=== PATIENT | female | born 1955 | race Caucasian/White ===

== ENCOUNTER 2024-01-15 22:16 | Emergency (ER) | payer MEDICARE ==
[~2024-01-15] VITALS: Ht 162.6 cm; Wt 53.1 kg
[~2024-01-15 22:16] MED LIST: ETOMIDATE 2 MG/ML 10 ML INJ IV ONE; SUCCINYLCHOLINE CHLORIDE 20 MG/ML 10ML VIAL ONE
[2024-01-15 22:49] LABS: BASOPHILS # (AUTO) 0.1 (0.0-0.1); BASOPHILS % 0.6 % (0.0-1.0); EOSINOPHILS # (AUTO) 0.3 (0.0-0.4); EOSINOPHILS % 3.4 % (0.0-6.0); HEMOGLOBIN 8.7 g/dL (12.0-16.0); LYMPHOCYTES # (AUTO) 2.4 (1.0-3.2); LYMPHOCYTES % 25.8 % (18.0-39.1); MEAN CORPUSCULAR HEMOGLOBIN 23.8 pg (28-32); MEAN CORPUSCULAR VOLUME 79.2 fL (81-99); MONOCYTES # (AUTO) 0.6 (0.2-0.8); MONOCYTES % 6.8 % (4.4-11.3); NEUTROPHILS % 63.2 % (38.7-80.0); PLATELET COUNT 469 x10e3/uL (140-360); RED BLOOD COUNT 3.66 x10e6/uL (3.6-5.1); RED CELL DISTRIBUTION WIDTH 18.6 % (11.7-14.4); WHITE BLOOD COUNT 9.45 x10e3/uL (4.8-10.8)
[2024-01-15] MEDS: FUROSEMIDE INJ 10 MG/ML 4 ML VIAL IV ONE (23:05)
[2024-01-15] MEDS: ASPIRIN 81 MG CHEW TAB PO ONE (23:05)
[2024-01-15 23:06] LABS: PROTHROMBIN TIME 13.7 seconds (11.9-14.5)
[2024-01-15 23:07] LABS: ALBUMIN 3.6 g/dL (3.5-5.0); ALBUMIN/GLOBULIN RATIO 0.8 (0.8-2.0); ANION GAP 13.7 mmol/L (8-16); BILIRUBIN,TOTAL 0.2 mg/dL (0.2-1.2); CALCIUM 8.8 mg/dL (8.4-10.2); CREATININE, SERUM 1.17 mg/dL (0.57-1.11); PARTIAL THROMBOPLASTIN TIME 31.6 seconds (23.8-35.5); POTASSIUM 3.7 mmol/L (3.5-5.1)
[2024-01-15] MEDS ORDERED: DEXMEDETOMIDINE 400MCG/NS100ML 100 ML IV ONE (23:43)
[2024-01-15 23:57] VITALS: PULSE 86; RESP 18; TEMP 98.6
[2024-01-15] MEDS: DEXMEDETOMIDINE 400MCG/NS100ML 100 ML IV PRN (23:58)
[2024-01-16] MEDS ORDERED: MIDAZOLAM HCL 2 MG/2 ML VIAL ONE (00:09)
[2024-01-16] MEDS: MIDAZOLAM HCL 2 MG/2 ML VIAL IV STA (00:12)
[2024-01-16 05:13] VITALS: BP 120/71; PULSE 86; RESP 18; TEMP 98.6; O2SAT 100
== END 2024-01-16 00:08 | disposition other institution (70) ==
LOC: ER 22:25
DX: J96.90 Respiratory failure, unspecified, unspecified whether with hypoxia or hypercapnia (principal); I21.3 ST elevation (STEMI) myocardial infarction of unspecified site; I24.9 Acute ischemic heart disease, unspecified; R07.9 Chest pain, unspecified; J81.1 Chronic pulmonary edema; E11.65 Type 2 diabetes mellitus with hyperglycemia; I10 Essential (primary) hypertension; R94.31 Abnormal electrocardiogram [ECG] [EKG]
CPT/HCPCS: 31500; 36415; 71045; 80053; 82948; 83880; 84484; 85025; 85610; 85730; 92950; 94002; 99284; J0330; J1940; J2250